=== PATIENT | female | born 1930 | race Caucasian/White ===

== ENCOUNTER 2017-03-07 21:53 | Inpatient (IN) | payer OTHER ==
[~2017-03-07] VITALS: Ht 152.4 cm; Wt 58.1 kg
[2017-03-07 22:00] VITALS: BP_SYST 129
--- NOTE | 2017-03-07 22:00 | NUR ---
Patient triaged and placed in ER hallway awaiting availble room. VSS and patient appears in no acute distress at this time. Accompanied by EMT, awaiting available bed, and MD notified of need for MSE.
[2017-03-07] MEDS ORDERED: NACL 0.9% 1,000 ML IV ONE (23:25)
--- NOTE | 2017-03-07 23:25 | NUR ---
ED MD Moyer assessing patient in hallway.
[2017-03-07] MEDS ORDERED: PANTOPRAZOLE SODIUM 40 MG/VIAL (PROTONIX) IVP ONE (23:30)
[2017-03-07] MEDS ORDERED: ONDANSETRON HCL 4 MG/2 ML VIAL IVP ONE (23:30)
[2017-03-08] VITALS (7 sets, daily range): BP systolic 110–148
--- NOTE | 2017-03-08 00:01 | NUR ---
Patient to ER bed 1 to gown for evaluation. Side rails up. Report given to Lex HOWELL.
--- NOTE | 2017-03-08 00:10 | NUR ---
Patient arrived to ED via BLS a/o x 4 with c/o failure to thrive x 2 weeks. Patients son reports the patient has been unwilling to recieve any oral intake. Patient has history of failure to thrive resulting in hospitilization 4 years ago. Patient presents lethargic. Reports lack of appetite. Son at bedside. Will continue to monitor.
[2017-03-08 00:12] LABS: BASOPHILS % (AUTO) 0.4 % (0.0-2.0)
[2017-03-08 00:18] LABS: LYMPHOCYTES # (AUTO) 0.5 K/uL (1.0-5.5); MEAN CORPUSCULAR HGB CONC 30 % (32-36); NEUTROPHILS # (AUTO) 5.6 K/uL (1.8-7.7); WHITE BLOOD COUNT (AUTO) 6.8 K/uL (4.8-10.8)
[2017-03-08 00:26] LABS: MEAN CORPUSCULAR HEMOGLOBIN 22 pg (27-31)
[2017-03-08 00:29] LABS: ANION GAP 7 (5-15); CALCIUM 9.5 mg/dL (8.4-11.0); CHLORIDE 101 mmol/L (98-107); CREATININE 1.01 mg/dL (0.55-1.30); GLUCOSE 114 mg/dL (70-99); POTASSIUM 3.1 mmol/L (3.5-5.1); SODIUM SERUM 135 mmol/L (136-145); UREA NITROGEN, BLOOD 15 mg/dL (8-21)
[2017-03-08 00:32] LABS: INR 1.3 (0.8-1.2); PROTHROMBIN TIME 13.8 SECS (9.5-12.5)
[2017-03-08 00:33] LABS: ALANINE AMINOTRANSFERASE 8 U/L (12-78); ALBUMIN 1.9 g/dL (3.4-4.8); ASPARTATE AMINOTRANSFERASE 25 U/L (10-37); TOTAL BILIRUBIN 0.8 mg/dL (0.0-1.0)
[2017-03-08 00:42] LABS: EOSINOPHILS # (AUTO) 0.2 K/uL (0.0-0.4); EOSINOPHILS % (AUTO) 2.3 % (0.0-4.0); HEMATOCRIT 26.5 % (36-48); HEMOGLOBIN 7.9 g/dL (12.0-16.0); MEAN CORPUSCULAR VOLUME 74 fL (79.0-98.0); MONOCYTES # (AUTO) 0.5 K/uL (0.0-1.0); MONOCYTES % (AUTO) 7.8 % (1.7-9.3); NEUTROPHILS % (AUTO) 81.5 % (40.0-70.0); PLATELET COUNT (AUTO) 419 K/uL (130-430); RED BLOOD CELL COUNT(AUTO) 3.59 MIL/uL (4.2-6.2); RED CELL DISTRIBUTION WIDTH 18.4 % (9.0-15.0)
--- NOTE | 2017-03-08 00:50 | NUR ---
20 gauge angiocath placed to right AC. Use of asceptic technique. Opsite placed over site. Blood return noted. Flushed with 10 cc of normal saline. No evidence of infiltration noted. Patient tolerated well.
--- NOTE | 2017-03-08 01:00 | NUR ---
Medicated per MD orders. IVF infusing with no s/s of infiltration at this time. Will continue to monitor
--- NOTE | 2017-03-08 01:15 | NUR ---
ED MD Moyer at bedside reassessing patient.
[2017-03-08] MEDS ORDERED: D5NS 1,000 ML IV ONE (01:30)
[2017-03-08] MEDS ORDERED: IRON28TA4 PO (01:37)
[2017-03-08] MEDS ORDERED: FAMO20TA8 PO (01:37)
[2017-03-08] MEDS ORDERED: DOCU-144 PO (01:37)
[2017-03-08] MEDS ORDERED: DONE5TAB3 PO (01:37)
[2017-03-08] MEDS ORDERED: ASPI-1063 PO (01:37)
[2017-03-08] MEDS ORDERED: FENO48TA4 PO (01:37)
--- NOTE | 2017-03-08 01:37 | NUR ---
Medication reconciliation completed with information provided by - list from facility. Any prior medication reconciliation on file was reviewed and corrected.
--- NOTE | 2017-03-08 01:40 | NUR ---
Patient will be admitted to care of Dr. Hicks . Admitted to Med/Surg unit. Will go to room 120A. Belongings list completed. Summary report printed. Report will be given at bedside.
--- NOTE | 2017-03-08 01:55 | NUR ---
ADMISSION NOTE Received patient from ER via [facility] under the care of Dr Hicks. Patient admitted with diagnosis of Failure to Thrive . Patient is awake, alert, oriented X 3. Patient oriented to hospital room, call light, toileting, pain management and safety-teach back done. Patient informed that her Nurse will be Janey HOWELL and that her room number is 120A. Call light within reach.Will monitor patient condition closely.
--- NOTE | 2017-03-08 02:00 | NUR ---
ROUNDS PATIENT IN BED, SON AT THE BEDSIDE, VITALS STABLE, DENIES ANY PAIN AND DISCOMFORT AT THIS TIME. ADMISSION ASSESSMENT DONE AND DOCUMENTED. SEE FLOWSHEET. PATIENT ORIENTED TO HER ROOM, PHONE AND CALL LIGHT. PLAN OF CARE DISCUSSED WITH SON AND VERBALIZED UNDERSTANDING. NEEDS ATTENDED TO. SAFETY AND FALL PRECAUTION MEASURES IN PLACED. CALL LIGHT PLACED WITHIN REACH.
--- NOTE | 2017-03-08 04:00 | NUR ---
PATIENT RESTING: Patient resting quietly. No acute distress noted. Vital signs within normal range.
--- NOTE | 2017-03-08 06:50 | NUR ---
CLOSING NOTES PATIENT AWAKE, VITALS STABLE, DENIES ANY PAIN AND DISCOMFORT AT THIS TIME. ALL NEEDS ATTENDED TO. SAFETY MEASURES MAINTAINED. CALL LIGHT PLACED WITHIN REACH.
[2017-03-08 07:14] LABS: ALANINE AMINOTRANSFERASE 9 U/L (12-78); ALBUMIN 1.6 g/dL (3.4-4.8); ANION GAP 5 (5-15); ASPARTATE AMINOTRANSFERASE 23 U/L (10-37); CALCIUM 8.9 mg/dL (8.4-11.0); CHLORIDE 104 mmol/L (98-107); CREATININE 1.18 mg/dL (0.55-1.30); GLUCOSE 109 mg/dL (70-99); POTASSIUM 3.4 mmol/L (3.5-5.1); SODIUM SERUM 138 mmol/L (136-145); TOTAL BILIRUBIN 0.8 mg/dL (0.0-1.0); UREA NITROGEN, BLOOD 14 mg/dL (8-21)
[2017-03-08 07:42] LABS: BASOPHILS % (AUTO) 0.5 % (0.0-2.0); EOSINOPHILS # (AUTO) 0.2 K/uL (0.0-0.4); EOSINOPHILS % (AUTO) 3.3 % (0.0-4.0); LYMPHOCYTES # (AUTO) 0.7 K/uL (1.0-5.5); LYMPHOCYTES % (AUTO) 12.6 % (20.5-51.5); MEAN CORPUSCULAR HEMOGLOBIN 23 pg (27-31); MEAN CORPUSCULAR HGB CONC 31 % (32-36); MEAN CORPUSCULAR VOLUME 75 fL (79.0-98.0); MONOCYTES # (AUTO) 0.6 K/uL (0.0-1.0); MONOCYTES % (AUTO) 11.9 % (1.7-9.3); NEUTROPHILS % (AUTO) 71.7 % (40.0-70.0); PLATELET COUNT (AUTO) 348 K/uL (130-430); RED BLOOD CELL COUNT(AUTO) 3.09 MIL/uL (4.2-6.2); RED CELL DISTRIBUTION WIDTH 18.4 % (9.0-15.0); WHITE BLOOD COUNT (AUTO) 5.5 K/uL (4.8-10.8)
--- NOTE | 2017-03-08 07:49 | NUR ---
OPENING NOTE: RECEIVED PATIENT FROM DANTE GIBBS. PATIENT RESTING IN BED, SEMI FOWLERS. PT IS AWAKE AND ALERT. NO ACUTE SIGNS OF RESP DISTRESS, NO SOB. SKIN WARM DRY AND COLOR PINK. IV INTACT, NO REDNESS/SWELLING/PAIN TO SITE. IVF INFUSING WELL. BED AT LOWEST POSITION, CALL LIGHT IN REACH, BED ALARM ON, SIDE RAILX3. PATIENT IS CLOSE TO NURSING STATION. CONTINUE TO MONITOR.
--- NOTE | 2017-03-08 08:04 | NUR ---
PAGING DR. JENSEN: AWAITING CALL BACK.
--- NOTE | 2017-03-08 08:05 | NUR ---
Nutrition Update Laureano Scale 16 noted. Pt admitted for Failure to thrive Diet: no diet order BMI: 24.9 kg/m2 RD to follow per nutrition care standards.
--- NOTE | 2017-03-08 09:00 | NUR ---
PAGING DR. JENSEN X2: REGARDING LAB RESULTS. AWAITING CALL BACK.
--- NOTE | 2017-03-08 10:28 | NUR ---
ROUNDING: PT RESTING IN BED. NO ACUTE SIGNS OF RESP DISTRESS, NO SOB. SKIN COLOR PINK. IV INTACT, NO REDNESS/SWELLING TO SITE. BED AT LOWEST POSITION, CALL LIGHT IN REACH, BED ALARM ON, SIDE RAILX3. SPOKE TO DR. ELISE ON THE PHONE AND DR. ELISE STATED "ILL BE THERE SHORTLY". AWAITING
[2017-03-08] MEDS ORDERED: NACL 0.9% 1,000 ML IV SCH (10:57)
[2017-03-08] MEDS ORDERED: FAMOTIDINE 20 MG TABLET PO PRN (11:00)
[2017-03-08] MEDS ORDERED: MORPHINE 2 MG/ML INJ. SYRINGE IVP PRN (11:00)
[2017-03-08] MEDS ORDERED: ACETAMINOPHEN 325 MG TABLET PO PRN (11:00)
[2017-03-08] MEDS ORDERED: ONDANSETRON HCL 4 MG/2 ML VIAL IVP PRN (11:00)
[2017-03-08 11:28] LABS: FREE T4 (FREE THYROXINE) 1.3 ng/dL (0.6-1.6)
--- NOTE | 2017-03-08 12:00 | NUR ---
ROUNDING: PT RESTING IN BED, NO ACUTE SIGNS OF RESP DISTRESS, NO SOB. SKIN WARM DRY AND PINK. DENIES PAIN AT THIS TIME. BED AT LOWEST POSITION, CALL LIGHT IN REACH, BED ALARM ON, SIDE RAILX3.
[2017-03-08 12:50] LABS: PHOSPHORUS 2.7 mg/dL (2.7-4.5)
[2017-03-08 12:51] LABS: THYROID STIMULATING HORMONE 2.18 uIu/mL (0.34-4.82)
[2017-03-08] MEDS: NORMAL SALINE 5 ML DISP.SYRIN IVF SCH ×2 (13:32→21:02)
[2017-03-08] MEDS: PIPERACILLIN/TAZO 2.25G/DEX-IS 50 ML IV SCH ×2 (13:32→18:42)
--- NOTE | 2017-03-08 14:00 | NUR ---
ROUNDING: PT RESTING IN BED. NO ACUTE SIGNS OF RESP DISTRESS, SKIN COLOR PINK. DENIES PAIN AT THIS TIME. PT AWAKE AND ALERT. BED AT LOWEST POSITION, CALL LIGHT IN REACH, BED ALARM ON, SIDE RAILX3.
--- NOTE | 2017-03-08 17:02 | NUR ---
ROUNDING: PT RESTING IN BED, NO ACUTE SIGNS OF RESP DISTRESS, NO SOB. IV INTACT, NO REDNESS/SWELLING OR PAIN TO SITE. DENIES PAIN AT THIS TIME. BED AT LOWEST POSITION, CALL LIGHT IN REACH, BED ALARM ON, SIDE RAILX3.
--- NOTE | 2017-03-08 18:11 | NUR ---
CLOSING NOTE/REFUSED FC: ENCOURAGED PATIENT TO URINATE, ASSISTED TO BEDSIDE COMMODE WITH DWAYNE. PATIENT HAD 100ML URINE OUTPUT. PT RESTING IN BED, NO ACUTE SIGNS OF RESP DISTRESS, NO SOB. SKIN WARM AND DRY. IV INTACT, NO REDNESS/SWELLING/PAIN TO SITE. BED AT LOWEST POSITION, CALL LIGHT IN REACH, BED ALARM ON, SIDE RAILX3. WILL ENDORSE PLAN OF CARE TO DANTE FLYNN.
--- NOTE | 2017-03-08 20:11 | NUR ---
Patient awake assist for position change HOB elevated , on room air 02 SAT 96 % chest movement shallow also symmetrical PATIENT is Refusing HENDRICKS CATHETER for urine will encourage BSC call ruffin with PT .
[2017-03-08] MEDS: LACTOBACILLUS RHAMNOSUS GG 1 CAP CAPSULE PO SCH (21:00)
[2017-03-08] MEDS ORDERED: SACCHAROMYCES BOULARDII 250 MG CAPSULE (FLORASTOR) PO SCH (21:00)
[2017-03-08] MEDS: DONEPEZIL HCL 5 MG TABLET (ARICEPT) PO SCH (21:00)
[2017-03-08] MEDS: DOCUSATE SODIUM 100 MG CAPSULE PO SCH (21:01)
--- NOTE | 2017-03-09 | NUR ---
Hourly Rounding patient resting is verbally responsive HOB elevated chest movement symmetrical skin dry warm assist for position change tolerated .
[2017-03-09] MEDS: PIPERACILLIN/TAZO 2.25G/DEX-IS 50 ML IV SCH ×4 (00:32→18:37)
[2017-03-09 03:31] VITALS: BP_SYST 133
[2017-03-09 04:02] LABS: BILIRUBIN,URINE 1+ (NEGATIVE); BLOOD, URINE 2+ (NEGATIVE); CLARITY/URINE CLEAR (CLEAR); COLOR,URINE YELLOW (YELLOW); GLUCOSE,URINE NEGATIVE (NEGATIVE); KETONES,URINE TRACE (NEGATIVE); LEUKOCYTE ESTERASE ,URINE TRACE (NEGATIVE); NITRITE, URINE NEGATIVE (NEGATIVE); PH,URINE 5.5 (5.0-8.0); PROTEIN URINE 1+ (NEGATIVE); UROBILINOGEN,URINE >=8 (0.2-1.0)
[2017-03-09 04:03] LABS: BACTERIA,URINE MODERATE /HPF (None Seen)
--- NOTE | 2017-03-09 04:03 | NUR ---
URINE HAS BEEN COLLECTED and sent to lab / .
[2017-03-09 04:04] LABS: MUCUS,URINE 1+ /LPF (None Seen)
--- NOTE | 2017-03-09 04:08 | NUR ---
assist PATIENT out of bed to bedside commode PT did urinate , safety measures implemented .
--- NOTE | 2017-03-09 04:54 | NUR ---
ZOSYN 2.25 GM IVPB administer as ordered no s/sx of allergic reaction no hives no itching noted / .
[2017-03-09 05:09] LABS: T4 (THYROXINE) 8.1 ug/dL (4.5-12.0)
[2017-03-09] MEDS: NORMAL SALINE 5 ML DISP.SYRIN IVF SCH ×3 (06:36→22:16)
[2017-03-09 07:53] LABS: ANION GAP 7 (5-15); CALCIUM 8.9 mg/dL (8.4-11.0); CHLORIDE 103 mmol/L (98-107); CHOLESTEROL 103 mg/dL (<200); CREATININE 1.31 mg/dL (0.55-1.30); GLUCOSE 128 mg/dL (70-99); HDL CHOLESTEROL 27 mg/dL (>55); LDL CHOLESTEROL 79 mg/dL (<100); SODIUM SERUM 137 mmol/L (136-145); TRIGLYCERIDES 72 mg/dL (30-150); UREA NITROGEN, BLOOD 13 mg/dL (8-21)
[2017-03-09 08:15] LABS: BASOPHILS % (AUTO) 0.3 % (0.0-2.0); EOSINOPHILS # (AUTO) 0.2 K/uL (0.0-0.4); EOSINOPHILS % (AUTO) 2.9 % (0.0-4.0); HEMATOCRIT 23.3 % (36-48); LYMPHOCYTES # (AUTO) 0.7 K/uL (1.0-5.5); LYMPHOCYTES % (AUTO) 9.2 % (20.5-51.5); MEAN CORPUSCULAR HEMOGLOBIN 23 pg (27-31); MEAN CORPUSCULAR HGB CONC 30 % (32-36); MEAN CORPUSCULAR VOLUME 75 fL (79.0-98.0); MONOCYTES # (AUTO) 0.7 K/uL (0.0-1.0); MONOCYTES % (AUTO) 8.8 % (1.7-9.3); NEUTROPHILS # (AUTO) 6.1 K/uL (1.8-7.7); NEUTROPHILS % (AUTO) 78.8 % (40.0-70.0); PLATELET COUNT (AUTO) 349 K/uL (130-430); RED BLOOD CELL COUNT(AUTO) 3.13 MIL/uL (4.2-6.2); RED CELL DISTRIBUTION WIDTH 18.8 % (9.0-15.0); WHITE BLOOD COUNT (AUTO) 7.7 K/uL (4.8-10.8)
[2017-03-09 08:34] VITALS: BP_SYST 114
[2017-03-09 09:12] LABS: HEMOGLOBIN A1C 5.2 % (4.8-5.6)
[2017-03-09] MEDS: LACTOBACILLUS RHAMNOSUS GG 1 CAP CAPSULE PO SCH ×2 (09:26→22:15)
[2017-03-09] MEDS: FENOFIBRATE NANOCRYSTALLIZED 48 MG TABLET (TRICOR) PO SCH (09:27)
[2017-03-09] MEDS: DOCUSATE SODIUM 100 MG CAPSULE PO SCH ×2 (09:27→22:15)
[2017-03-09] MEDS: ASPIRIN 81 MG TABLET(ECOTRIN) PO SCH (09:27)
--- NOTE | 2017-03-09 10:38 | NUR ---
DC PLANNING: ALEX(SON) OF THE PT TEL# [phone], REQUESTING A LIST OF SNFS WHERE Brian KIM GOES TO. GAVE THE LIST AND HE WILL JUST LET THE CM/DCP KNOW WHERE. Addendum: 03/09/17 at 1441 by Danielle Peters RN FAXED TO [facility]#[phone]; FAX# [phone]. KYE WILL CHECK ELIGIBILITY AND WILL CALL BACK.
--- NOTE | 2017-03-09 11:51 | NUR ---
SPOKE WITH PATIENT'S SON REGARDING PLAN OF CARE. PER SON PATIENT IS DNR, DOES NOT WANT FEEDING TUBE, WILL TRY MEDICATIONS TO STIMULATE APPETITE IF APPROPRIATE.
[2017-03-09 12:00] VITALS: BP_SYST 101
--- NOTE | 2017-03-09 12:55 | NUR ---
PT SON AT BEDSIDE ASSISTING PATIENT WITH EATING. PATIENT IS EATING SLOWLY. C/O BLADDER SPASMS.
--- NOTE | 2017-03-09 14:41 | NUR ---
Dietitian Recommendations * Recommend regular diet, Boost Plus TID * Consider appetite stimulant JEANNINE, RD Please refer to Nutrition Assessment for details. Addendum: 03/09/17 at [address] NOTE: (oral supplement provides an additional 1080 kcal/day and 42 gm protein/day)
[2017-03-09 16:06] VITALS: BP_SYST 105
--- NOTE | 2017-03-09 16:33 | NUR ---
CARDIOLOGY CONSULT CALLED TO DR LONG, DR DUQUE NETWORK SERVICES PROJECT MANAGER, RE: FAILURE TO THRIVE. SPOKE TO BENSON
[2017-03-09 21:07] VITALS: BP_SYST 108
--- NOTE | 2017-03-09 21:15 | NUR ---
DR KYLE POSADA did call & is aware of the ordered consult .
--- NOTE | 2017-03-09 21:54 | NUR ---
GI Consultation Paged Reason for consultation: Abd Pain, Poor Appetite, 10 lbs wt loss, Anemia Was consult called: Yes Person who was notified: Demetria Consulting Physician: Dr Ashby Supervisor [employer] Supervisor [employer] Specialty: Gastroenterology Ordered By: Dr Howell
[2017-03-09] MEDS: DONEPEZIL HCL 5 MG TABLET (ARICEPT) PO SCH (22:15)
[2017-03-09 23:19] VITALS: BP_SYST 135
[2017-03-10] MEDS: PIPERACILLIN/TAZO 2.25G/DEX-IS 50 ML IV SCH ×4 (01:26→18:18)
--- NOTE | 2017-03-10 01:41 | NUR ---
Hourly Rounding patient resting call ruffin with PT bed to low position .
--- NOTE | 2017-03-10 01:43 | NUR ---
ZOSYN 2.25 GM IVPB ADMINISTER as ordered no s/sx of allergic reaction skin dry warm .
--- NOTE | 2017-03-10 03:36 | NUR ---
Hourly Rounding patient resting call ruffin with PT no complaints made .
[2017-03-10 03:43] VITALS: BP_SYST 124
--- NOTE | 2017-03-10 05:49 | NUR ---
Patient awake assist with use of bed arrington , kept clean and dry as needed position change tolerated .
[2017-03-10] MEDS: NORMAL SALINE 5 ML DISP.SYRIN IVF SCH ×3 (06:11→22:29)
[2017-03-10 07:50] LABS: BASOPHILS % (AUTO) 0.3 % (0.0-2.0); EOSINOPHILS # (AUTO) 0.2 K/uL (0.0-0.4); EOSINOPHILS % (AUTO) 3.1 % (0.0-4.0); HEMATOCRIT 23.8 % (36-48); HEMOGLOBIN 7.4 g/dL (12.0-16.0); LYMPHOCYTES # (AUTO) 0.8 K/uL (1.0-5.5); LYMPHOCYTES % (AUTO) 10.7 % (20.5-51.5); MEAN CORPUSCULAR HEMOGLOBIN 23 pg (27-31); MEAN CORPUSCULAR HGB CONC 31 % (32-36); MEAN CORPUSCULAR VOLUME 75 fL (79.0-98.0); MONOCYTES # (AUTO) 0.7 K/uL (0.0-1.0); MONOCYTES % (AUTO) 9.8 % (1.7-9.3); NEUTROPHILS # (AUTO) 5.4 K/uL (1.8-7.7); NEUTROPHILS % (AUTO) 76.1 % (40.0-70.0); PLATELET COUNT (AUTO) 359 K/uL (130-430); RED BLOOD CELL COUNT(AUTO) 3.18 MIL/uL (4.2-6.2); RED CELL DISTRIBUTION WIDTH 18.5 % (9.0-15.0); WHITE BLOOD COUNT (AUTO) 7.2 K/uL (4.8-10.8)
[2017-03-10 08:00] VITALS: BP_SYST 133
[2017-03-10 08:14] LABS: ANION GAP 9 (5-15); CALCIUM 8.9 mg/dL (8.4-11.0); CHLORIDE 103 mmol/L (98-107); CREATININE 1.33 mg/dL (0.55-1.30); GLUCOSE 128 mg/dL (70-99); PHOSPHORUS 2.2 mg/dL (2.7-4.5); POTASSIUM 3.5 mmol/L (3.5-5.1); SODIUM SERUM 137 mmol/L (136-145); UREA NITROGEN, BLOOD 14 mg/dL (8-21)
--- NOTE | 2017-03-10 08:16 | NUR ---
OPENING NOTE RECEIVED REPORT FROM NIGHT RN. PT RESTING IN BED WITH S/S OF DISTRESS OR SOB. IV INTACT AND PATENT KEPT KVO. VITAL SIGNS STABLE. CALL MARTINS WITHIN REACH. BED IN LOWEST POSITION. WILL CONTINUE TO MONITOR CLOSELY
[2017-03-10] MEDS: LACTOBACILLUS RHAMNOSUS GG 1 CAP CAPSULE PO SCH ×2 (08:51→22:28)
[2017-03-10] MEDS: DOCUSATE SODIUM 100 MG CAPSULE PO SCH ×2 (08:51→22:28)
[2017-03-10] MEDS: FENOFIBRATE NANOCRYSTALLIZED 48 MG TABLET (TRICOR) PO SCH (08:52)
[2017-03-10] MEDS: ASPIRIN 81 MG TABLET(ECOTRIN) PO SCH (08:52)
--- NOTE | 2017-03-10 10:00 | NUR ---
ROUNDS PT RESTING IN BED WITH NO S/S OF DISTRESS OR SOB. FAMILY MEMBER AT BEDSIDE. DIET CHANGED TO CLEAR LIQUID DIET. BED IN LOWEST POSITION. CALL MARTINS WITHIN REACH. WILL CONTINUE TO MONITOR
--- NOTE | 2017-03-10 12:00 | NUR ---
ROUNDS PT RESTING IN BED WITH NO S/S OF DISTRESS OR SOB. FAMILY MEMBER AT BEDSIDE. KCL AND ZOSYN ORDERED. 12 LEAD EKG ORDERED. PT TO HAVE CT SCAN. BED IN LOWEST POSITION, CALL MARTINS WITHIN REACH. WILL CONTINUE TO MONITOR.
[2017-03-10 12:45] VITALS: BP_SYST 132
--- NOTE | 2017-03-10 14:00 | NUR ---
ROUNDS PT RESTING IN BED WITH NO S/S OF DISTRESS OR SOB AND NO CURRENT COMPLAINTS. BED IN LOWEST POSITION. CALL MARTINS WITHIN REACH. WILL CONTINUE TO MONITOR.
[2017-03-10] MEDS: POTASSIUM CHLORIDE 10 MEQ in NACL 0.9% 1,000 ML IV SCH (14:45)
--- NOTE | 2017-03-10 16:00 | NUR ---
ROUNDS PT GOING FOR CT SCAN. WILL CONTINUE TO MONITOR.
[2017-03-10 16:20] VITALS: BP_SYST 136
--- NOTE | 2017-03-10 18:52 | NUR ---
CLOSING NOTE PT RESTING IN BED WITH NO S/S OF DISTRESS OR SOB. FAMILY MEMBERS AT BEDSIDE. PT URINATED DARK PATRICIA URINE USING BEDPAN. IV INTACT AND PATENT RUNNING KCL 10 IN NS AND ZOSYN GIVEN. VITAL SIGNS STABLE. BED REMAINS IN LOWEST POSITION. ALL NEEDS MET DURING SHIFT. WILL GIVE REPORT TO COLLAR BAND CREASER RN.
[2017-03-10 20:23] VITALS: BP_SYST 137
--- NOTE | 2017-03-10 21:35 | NUR ---
Patient awake assist for position change , skin dry warm comfort measures implemented & helpful .
[2017-03-10] MEDS: DONEPEZIL HCL 5 MG TABLET (ARICEPT) PO SCH (22:29)
[2017-03-10 23:39] VITALS: BP_SYST 134
[2017-03-11] VITALS (9 sets, daily range): BP systolic 108–129
--- NOTE | 2017-03-11 | NUR ---
NPO STATUS PATIENT IS NPO THIS HOUR .
[2017-03-11] MEDS: PIPERACILLIN/TAZO 2.25G/DEX-IS 50 ML IV SCH ×4 (00:09→18:47)
--- NOTE | 2017-03-11 04:11 | NUR ---
patient is NPO for AM procedure EGD .
--- NOTE | 2017-03-11 04:14 | NUR ---
Hourly Rounding bed to low position call ruffin with PT fall measures implemented frequent monitor .
[2017-03-11] MEDS: POTASSIUM CHLORIDE 10 MEQ in NACL 0.9% 1,000 ML IV SCH ×2 (06:24→13:28)
[2017-03-11] MEDS: NORMAL SALINE 5 ML DISP.SYRIN IVF SCH ×3 (06:25→21:26)
[2017-03-11] MEDS ORDERED: MEPERIDINE HCL/PF 100 MG/ML AMP ONE (06:44)
[2017-03-11] MEDS ORDERED: MIDAZOLAM HCL 5 MG/5 ML VIAL ONE (06:44)
--- NOTE | 2017-03-11 07:30 | NUR ---
Picked pt up from room 130A and brought to GI lab via bed. Son with pt.
[2017-03-11 07:41] LABS: BASOPHILS % (AUTO) 0.6 % (0.0-2.0); EOSINOPHILS # (AUTO) 0.4 K/uL (0.0-0.4); EOSINOPHILS % (AUTO) 5.5 % (0.0-4.0); HEMATOCRIT 23.5 % (36-48); HEMOGLOBIN 7.3 g/dL (12.0-16.0); LYMPHOCYTES # (AUTO) 0.9 K/uL (1.0-5.5); LYMPHOCYTES % (AUTO) 12.4 % (20.5-51.5); MEAN CORPUSCULAR HEMOGLOBIN 23 pg (27-31); MEAN CORPUSCULAR HGB CONC 31 % (32-36); MEAN CORPUSCULAR VOLUME 75 fL (79.0-98.0); MONOCYTES # (AUTO) 0.7 K/uL (0.0-1.0); MONOCYTES % (AUTO) 10.2 % (1.7-9.3); NEUTROPHILS # (AUTO) 4.9 K/uL (1.8-7.7); NEUTROPHILS % (AUTO) 71.3 % (40.0-70.0); PLATELET COUNT (AUTO) 340 K/uL (130-430); RED BLOOD CELL COUNT(AUTO) 3.15 MIL/uL (4.2-6.2); RED CELL DISTRIBUTION WIDTH 18.5 % (9.0-15.0)
[2017-03-11 07:48] LABS: ANION GAP 7 (5-15); CALCIUM 8.9 mg/dL (8.4-11.0); CHLORIDE 103 mmol/L (98-107); CREATININE 1.22 mg/dL (0.55-1.30); GLUCOSE 108 mg/dL (70-99); PHOSPHORUS 2.3 mg/dL (2.7-4.5); POTASSIUM 3.5 mmol/L (3.5-5.1); SODIUM SERUM 136 mmol/L (136-145); UREA NITROGEN, BLOOD 12 mg/dL (8-21)
--- NOTE | 2017-03-11 07:55 | NUR ---
GI RECOVERY NOTE RECEIVED PT TO RR FROM GI LAB. SATS 95%, 126/59 HR 69 RR 18. SKIN WARM PINK AND DRY. PT OPENS EYES TO NAME CALLING AND SMILES. NO NAUSEA OR VOMITING. HOB UP. SON AT BEDSIDE. WILL CONTINUE TO MONITOR. Addendum: 03/11/17 at 0859 by Cherelle Miller RN Pt given Versed 1 mg IVP and Demerol 12.5 mg IVP as sedation for procedure.
[2017-03-11 08:00] LABS: WHITE BLOOD COUNT (AUTO) 6.9 K/uL (4.8-10.8)
--- NOTE | 2017-03-11 08:00 | NUR ---
RECEIVED PT TO RR FROM GI LAB. SATS 95%, 119/59 HR 69 RR 16. SKIN WARM PINK AND DRY. PT OPENS EYES TO NAME CALLING . NO NAUSEA OR VOMITING. HOB UP. SON AT BEDSIDE. WILL CONTINUE TO MONITOR.
--- NOTE | 2017-03-11 08:05 | NUR ---
REMAINS EASILY AROUSABLE. SKIN WARM AND DRY, PINK. PT IS LYING ON LEFT SIDE IN BED WITH HOB UP. BP 125/57, HR 67 RR 18 SATS 94% OFF 02. WILL CONTINUE TO MONITOR. SON AT BEDSIDE. NO BLEEDING N/V NOTED.
--- NOTE | 2017-03-11 08:10 | NUR ---
Remains easily arousable and answers questions. Skin warm, dry and pink. HOB up. Sats 95%, 122/61, HR 69 and RR 16. NO bleeding nausea or vomiting noted. Son at bedside. Will continue to montior.
--- NOTE | 2017-03-11 08:20 | NUR ---
Pt easily arousable and answers questions. Skin pink, warm and dry. No active bleeding, nausea or vomiting noted. BP 119/58/HR 66/RR 16 and sats 95 % without 02. HOB up. Pts son at bedside. Will continue to monitor.
[2017-03-11 08:28] LABS: TOTAL IRON BIND. CAPACITY 158 ug/dL (250-450)
--- NOTE | 2017-03-11 08:30 | NUR ---
Pt remains easily arousable. VSS. BP 106/61,RR 16,HR 73 and sats 95%. Skin pink and warm. no active bleeding nausea or vomiting. HOB up. Son at bedside. WIll continue to monitor.
[2017-03-11 08:33] LABS: INR 1.3 (0.8-1.2); PROTHROMBIN TIME 13.7 SECS (9.5-12.5)
--- NOTE | 2017-03-11 08:40 | NUR ---
Pt transferred by bed to room 130A. Son at bedside. Report given to Beulah at bedside.
--- NOTE | 2017-03-11 09:00 | NUR ---
rounds pt back from gi lab accompanied by pt's son. ivl on the l hand intact. occupational therapist aide infiltrationoted. pt is drowsy but arousable to stimuli. no sob noted. no acute distress. bed in low position and call light within reached.
--- NOTE | 2017-03-11 11:25 | NUR ---
S.T. SWALLOW EVAL COMPLETED. PT PRESENTS W/ GENERALLY FUNCTIONAL OROPHARYNGEAL SWALLOW W/ NO S/S OF ASPIRATION. REC: [facility] SOFT CHOPPED DIET. NURSES STAR AND TANYA NOTIFIED. G8996 CI G8997 CI G8998 CI NOMS LEVEL 6
[2017-03-11] MEDS: FENOFIBRATE NANOCRYSTALLIZED 48 MG TABLET (TRICOR) PO SCH (13:27)
[2017-03-11] MEDS: LACTOBACILLUS RHAMNOSUS GG 1 CAP CAPSULE PO SCH ×2 (13:27→21:23)
[2017-03-11] MEDS: DOCUSATE SODIUM 100 MG CAPSULE PO SCH ×2 (13:27→21:23)
[2017-03-11] MEDS: ASPIRIN 81 MG TABLET(ECOTRIN) PO SCH (13:28)
--- NOTE | 2017-03-11 13:31 | NUR ---
rounds pt being fed by the son at [facility] and [facility]. iv abx not available at this time..
--- NOTE | 2017-03-11 19:00 | NUR ---
closing notes pt is asleep , resting quietly. no acute distress noted. bed in low position and side rails up and locked.
--- NOTE | 2017-03-11 20:00 | NUR ---
INITIAL NOTES: PT is ao x4, no distress of breathing and sob.No appetite to eat,and drink.IV intact.able to walk with assident to the bathroom,call light within reach ,continue monitor.
[2017-03-11] MEDS: DONEPEZIL HCL 5 MG TABLET (ARICEPT) PO SCH (21:23)
--- NOTE | 2017-03-11 22:20 | NUR ---
RN NOTES: PT is sleep,cooperate with nurse. medication is given .continue monitor.
[2017-03-12] MEDS: PIPERACILLIN/TAZO 2.25G/DEX-IS 50 ML IV SCH ×2 (00:19→06:26)
--- NOTE | 2017-03-12 00:30 | NUR ---
AMBULATORY TO THE BATH ROOM WITH HOTEL SERVICE SUPERVISOR.
[2017-03-12 01:04] VITALS: BP_SYST 124
--- NOTE | 2017-03-12 02:30 | NUR ---
RN NOTES: pt is sleep well with out distress. no c/o of pain.call light within reach continue monitor.
[2017-03-12 04:00] VITALS: BP_SYST 111
--- NOTE | 2017-03-12 04:30 | NUR ---
RN notes: Reposition pt to comfortable right side. pillow under the arm.continue monitor .call light within reach.
[2017-03-12] MEDS: POTASSIUM CHLORIDE 10 MEQ in NACL 0.9% 1,000 ML IV SCH ×2 (06:27→15:08)
[2017-03-12] MEDS: NORMAL SALINE 5 ML DISP.SYRIN IVF SCH ×3 (06:28→21:28)
--- NOTE | 2017-03-12 07:00 | NUR ---
Closing notes: Pt resting and sleep without distress,IV fluids infusion well.pt stable.needs met.report to next shift nurse.
[2017-03-12 07:09] LABS: BASOPHILS % (AUTO) 0.6 % (0.0-2.0); EOSINOPHILS # (AUTO) 0.2 K/uL (0.0-0.4); EOSINOPHILS % (AUTO) 2.7 % (0.0-4.0); HEMATOCRIT 24.1 % (36-48); HEMOGLOBIN 7.6 g/dL (12.0-16.0); LYMPHOCYTES # (AUTO) 0.7 K/uL (1.0-5.5); LYMPHOCYTES % (AUTO) 9.8 % (20.5-51.5); MEAN CORPUSCULAR HEMOGLOBIN 24 pg (27-31); MEAN CORPUSCULAR HGB CONC 31 % (32-36); MEAN CORPUSCULAR VOLUME 75 fL (79.0-98.0); MONOCYTES # (AUTO) 0.7 K/uL (0.0-1.0); MONOCYTES % (AUTO) 9.9 % (1.7-9.3); NEUTROPHILS # (AUTO) 5.3 K/uL (1.8-7.7); PLATELET COUNT (AUTO) 389 K/uL (130-430); RED BLOOD CELL COUNT(AUTO) 3.22 MIL/uL (4.2-6.2); RED CELL DISTRIBUTION WIDTH 18.4 % (9.0-15.0); WHITE BLOOD COUNT (AUTO) 6.9 K/uL (4.8-10.8)
[2017-03-12 08:00] VITALS: BP_SYST 125
--- NOTE | 2017-03-12 08:00 | NUR ---
initial notes rec patient asleep but arousable to stimuli. ivf infusing well on the l forearm. no infiltration noted. resp easy unlabored. hob slightly elevated. bed in low position and side rails up and locked. call light within reached and knows when to call for assists.
[2017-03-12 08:19] LABS: CALCIUM 8.6 mg/dL (8.4-11.0); CHLORIDE 102 mmol/L (98-107); CREATININE 0.76 mg/dL (0.55-1.30); GLUCOSE 124 mg/dL (70-99); PHOSPHORUS 2.4 mg/dL (2.7-4.5); POTASSIUM 3.7 mmol/L (3.5-5.1); SODIUM SERUM 135 mmol/L (136-145); UREA NITROGEN, BLOOD 16 mg/dL (8-21)
[2017-03-12 08:27] LABS: ANION GAP 8 (5-15)
[2017-03-12 09:05] LABS: TOTAL IRON BIND. CAPACITY 131 ug/dL (250-450)
[2017-03-12] MEDS ORDERED: MORPHINE 2 MG/ML INJ. SYRINGE IVP PRN (09:45)
[2017-03-12] MEDS ORDERED: ZOLPIDEM TARTRATE 5 MG TABLET PO PRN (09:45)
[2017-03-12] MEDS ORDERED: ACETAMINOPHEN 325 MG TABLET PO PRN (09:45)
[2017-03-12] MEDS ORDERED: DOCUSATE SODIUM 100 MG CAPSULE PO PRN (09:45)
[2017-03-12] MEDS ORDERED: POTASSIUM CHLORIDE 10 MEQ TAB.PRT.SR PO PRN (09:45)
[2017-03-12] MEDS ORDERED: ONDANSETRON HCL 4 MG/2 ML VIAL IVP PRN (09:45)
[2017-03-12] MEDS ORDERED: MAGNESIUM SULFATE 50 ML IV PRN (09:45)
[2017-03-12] MEDS ORDERED: LORazepam 2 MG/ML VIAL IVP PRN (09:45)
[2017-03-12] MEDS ORDERED: IOHEXOL 100 ML IV ONE (10:30)
--- NOTE | 2017-03-12 10:50 | NUR ---
rounds pt back from ct scan via wheelchair. no acute distress noted. pt jimenez back to sleep.
--- NOTE | 2017-03-12 11:05 | NUR ---
DISCHARGE PLANNING Spoke with Carissa in admitting at [facility] [phone] who will have Venus in admitting return DCP call. Still pending discharge order. ULICES made aware and will follow up with on estimated discharge date. Addendum: 03/12/17 at 1159 by Emely LUNA Spoke with Venus at [facility] who will follow up with faxed referral and return call to DCP of facility decision. Venus was made aware [facility] will keep facility informed of estimated discharge. Addendum: 03/12/17 at 1202 by Emely Rodriguez DP Spoke with Venus at [facility] facility accepted patient and will give bed assignment upon discharge order.
[2017-03-12 12:20] VITALS: BP_SYST 123
--- NOTE | 2017-03-12 13:00 | NUR ---
rounds up and walking with p t and [facility] with a walker. family in the room with patient.
[2017-03-12] MEDS: cefTRIAXone 1 GM in D5W 50 ML IV SCH (14:10)
--- NOTE | 2017-03-12 14:30 | NUR ---
PHYSICAL THERAPY CO-SIGN The Physical Therapy Progress Notes documented by [employer] have been reviewed. Reviewed/Co-Signed by: Radha Jones,PT Documentation Done by: Ron Jenkins PTA I concur with the documentation of this FAMILY PROGRAM SPECIALIST. Plan: continue PT as per plan of care if she remains in this hospital. Addendum: 03/12/17 at 1549 by Radha Jones PT Amended: Links added.
--- NOTE | 2017-03-12 14:32 | NUR ---
CONSULT ONCOLOGY [address] ENRIQUE [phone] S/W [facility] OFFICE @[phone]
--- NOTE | 2017-03-12 15:20 | NUR ---
Nutrition F/U Admitting Diagnosis FTT Reviewed Pertinent Medical/Surgical Hx OPHTHALMIC ASSISTANT Medical Record Patient Medical History Comment: Dementia, anemia of chronic Dz, muslce weakness, unsteady gait, GERD, HLD per MD notes Subjective Information Pt seen resting in bed w/ lunch tray atop bedside table, seemingly untouched. OPHTHALMIC ASSISTANT assisted pt w/ feeding as pt seemed to have poor appetite. OPHTHALMIC ASSISTANT encouraged pt to try to eat a little bit of everything. Pt seemingly hesitant, and stated she is not hungry. Pt was evaluated by ST for swallow eval on 03/11/17; ST rec included mechanical soft, chopped diet. Pt pending oncologist/nail maker consult for 6 cm renal mass per MD orders. Pt is likely not meeting optimal nutritional needs. Pt is not appropriate for nutrition education. Current Diet Order/Nutrition Support Mechanical soft Patient/Significant Other Able To Verbalize Education Provided Not Indicated Pertinent Medications culturelle Pertinent Labs Na 135 L, K 3.7 WNL (improved), BG 124 H, CRE 0.76 WNL (improved), BNP 240 H (03/08/17), Amylase 121 H (03/08/17), H/H 7.6 L/24.1 L Height (Feet) 5 feet Height (Inches) 0.00 inches Weight (Pounds) 128 pounds (admission) BEDSCALE WT: 144 lb (03/12/17) -- likely inaccurate as bedscale may not have been calibrated properly Weight (Calculated Kilograms) 58.799192 kilograms Patient Weight 58.06 kg Body Mass Index 25.00 kg/m2 Usual Weight 138 lbs %UBW 101 %IBW 129 Hood/Adjusted Body Weight IBW: 100 lb, 45 kg Recent Weight Change Yes - 16 lb wt loss within past 4 months per son Weight Status Appropriate Gastrointestinal Symptoms None Food Allergies No Usual Diet At Home Regular Skin Integrity Comment: Laureano scale: 17; no skin issues noted Current % PO Poor/fair (25-75%) Estimated Energy Expenditure (kcals/day) 1382-0882 kcal/day (25-30 kcal/kg CBW for maintenance) Estimated Protein Required (g/day) 58 gm/day (1 gm/kg CBW for maintenance) Estimated Fluid Required (l/day) 1.5 L/day (25 ml/kg CBW for maintenance) Problem/Etiology/Signs/Symptoms Inadequate nutritional intakes related to lack of appetite as evidenced by poor PO intake records, unintentional wt loss, and Dx of FTT. Expected Outcomes/Goals - Monitor appetite and PO intakes w/ goal of pt meeting at least 75% of estimated nutritional needs, labs trending WNL, normal GI function, and skin integrity/wt maintenance Dietitian Recommendations * Recommend mechanical soft, chopped diet, Boost Plus TID (oral supplement provides an additional 1080 kcal/day and 42 gm protein/day) * Consider appetite stimulant Follow Up High Risk: F/U in 2-3 days Addendum: 03/12/17 at [address] CORRECTION: Laureano Moss; no skin issues noted
[2017-03-12 15:27] VITALS: BP_SYST 125
--- NOTE | 2017-03-12 15:27 | NUR ---
Dietitian Recommendations * Recommend mechanical soft, chopped diet, Boost Plus TID (oral supplement provides an additional 1080 kcal/day and 42 gm protein/day) * Consider appetite stimulant LP, RD Please refer to Nutrition F/U for details.
--- NOTE | 2017-03-12 16:00 | NUR ---
rounds dressing on the r hip intact . toes moving freely and warm to touch. sleeps at intervals . Addendum: 03/12/17 at 2003 by Liza Gutiérrez RN intended for another patient
[2017-03-12] MEDS: LACTOBACILLUS RHAMNOSUS GG 1 CAP CAPSULE PO SCH ×2 (17:07→21:26)
[2017-03-12] MEDS: FENOFIBRATE NANOCRYSTALLIZED 48 MG TABLET (TRICOR) PO SCH (17:07)
[2017-03-12] MEDS: ASPIRIN 81 MG TABLET(ECOTRIN) PO SCH (17:07)
--- NOTE | 2017-03-12 18:00 | NUR ---
rounds ib infiltrated on the l forearm and was restarted by jamaal on the r forearm. no infiltration noted. Addendum: 03/12/17 at 2005 by Liza Gutiérrez RN intended for another patient
--- NOTE | 2017-03-12 18:35 | NUR ---
closing notes son at bedside and wating for dr roth for pt's consult. no acute distress. pt being assisted by son to eat. stable, needs attended. call light within reached.
[2017-03-12 19:50] VITALS: BP_SYST 125
--- NOTE | 2017-03-12 20:05 | NUR ---
INITIAL NOTES: PT is ao x4, no distress of breathing and sob.patient asleep but arousable to stimuli. ivf infusing well on the left forearm. no infiltration noted. bed in low position and side rails up and locked. call light within reached and knows when to call for assists.
[2017-03-12] MEDS: DONEPEZIL HCL 5 MG TABLET (ARICEPT) PO SCH (21:26)
[2017-03-12] MEDS: HEPARIN SODIUM,PORCINE 5000 UNITS/ML VIAL SUBCUT SCH (21:27)
--- NOTE | 2017-03-12 21:33 | NUR ---
MEDS: pt is taken medication by herself.call light within reach. continue monitor .
--- NOTE | 2017-03-12 23:30 | NUR ---
RN NOTES: PT request to bathroom with the bed arrington.she is tired to walk to the bathroom.needs are mets.call light within reach.
--- NOTE | 2017-03-13 01:32 | NUR ---
RN NOTES; PT restless,reposition pt .perform comfortable care.call light within reach,continue monitor.
[2017-03-13] MEDS: MORPHINE 2 MG/ML INJ. SYRINGE IVP PRN ×2 (01:37→18:53)
[2017-03-13 01:58] VITALS: BP_SYST 127
[2017-03-13] MEDS: POTASSIUM CHLORIDE 10 MEQ in NACL 0.9% 1,000 ML IV SCH ×3 (02:28→21:20)
--- NOTE | 2017-03-13 02:34 | NUR ---
RN NOTES: IVF is changing bag.PT is resting well ,no s/sx of distress ,no sob.call light within reach.continue monitor.
--- NOTE | 2017-03-13 05:49 | NUR ---
RN NOTES: PT is awake and alert ,IV are patent,scd in both leg.3 rail up,call light within reach.continue monitor.
[2017-03-13 05:58] VITALS: BP_SYST 135
[2017-03-13] MEDS: NORMAL SALINE 5 ML DISP.SYRIN IVF SCH ×3 (06:00→21:18)
[2017-03-13 06:12] LABS: FOLATE (FOLIC ACID) 11.5 ng/mL (>3.0)
--- NOTE | 2017-03-13 06:44 | NUR ---
Closing notes: PT asleep ,3 rails up,bed in lowest position .She feel cold,extra warm blanket is provide. all need are met ,call light within reach.report to next shift nurse.
[2017-03-13 07:03] LABS: ANION GAP 9 (5-15); CALCIUM 8.5 mg/dL (8.4-11.0); CHLORIDE 104 mmol/L (98-107); CREATININE 1.25 mg/dL (0.55-1.30); GLUCOSE 125 mg/dL (70-99); POTASSIUM 3.6 mmol/L (3.5-5.1); SODIUM SERUM 136 mmol/L (136-145); UREA NITROGEN, BLOOD 14 mg/dL (8-21)
[2017-03-13 07:12] LABS: BASOPHILS % (AUTO) 0.5 % (0.0-2.0); EOSINOPHILS # (AUTO) 0.3 K/uL (0.0-0.4); EOSINOPHILS % (AUTO) 4.1 % (0.0-4.0); HEMATOCRIT 23.4 % (36-48); LYMPHOCYTES # (AUTO) 0.9 K/uL (1.0-5.5); LYMPHOCYTES % (AUTO) 12.6 % (20.5-51.5); MEAN CORPUSCULAR HEMOGLOBIN 23 pg (27-31); MEAN CORPUSCULAR HGB CONC 31 % (32-36); MEAN CORPUSCULAR VOLUME 75 fL (79.0-98.0); MONOCYTES # (AUTO) 0.7 K/uL (0.0-1.0); MONOCYTES % (AUTO) 10.8 % (1.7-9.3); PLATELET COUNT (AUTO) 372 K/uL (130-430); RED BLOOD CELL COUNT(AUTO) 3.14 MIL/uL (4.2-6.2); RED CELL DISTRIBUTION WIDTH 18.4 % (9.0-15.0); WHITE BLOOD COUNT (AUTO) 6.9 K/uL (4.8-10.8)
[2017-03-13 07:14] LABS: HEMOGLOBIN 7.2 g/dL (12.0-16.0)
[2017-03-13 08:08] VITALS: BP_SYST 125
--- NOTE | 2017-03-13 08:18 | NUR ---
INITIAL NOTE PT LAYING IN BED, SLEEPING, EVEN RISE AND FALL OF CHEST NOTED, PT EASY TO AROUSE, NO S/S OF ACUTE DISTRESS OR PAIN, VSS, IV TO LFA INFUSING NO S/S OF INFILTRATION NOTED, SAFETY MEASURES IN PLACE, CALL LIGHT WITHIN REACH, WILL MONITOR PT CLOSELY
[2017-03-13] MEDS: PANTOPRAZOLE SODIUM 40 MG TAB PO SCH (09:31)
[2017-03-13] MEDS: LACTOBACILLUS RHAMNOSUS GG 1 CAP CAPSULE PO SCH ×2 (09:31→21:13)
[2017-03-13] MEDS: FERROUS SULFATE 325 MG TABLET.DR PO SCH (09:31)
[2017-03-13] MEDS: FENOFIBRATE NANOCRYSTALLIZED 48 MG TABLET (TRICOR) PO SCH (09:31)
[2017-03-13] MEDS: ASPIRIN 81 MG TABLET(ECOTRIN) PO SCH (09:31)
[2017-03-13] MEDS: cefTRIAXone 1 GM in D5W 50 ML IV SCH (09:32)
[2017-03-13] MEDS: HEPARIN SODIUM,PORCINE 5000 UNITS/ML VIAL SUBCUT SCH ×2 (09:33→21:17)
--- NOTE | 2017-03-13 10:00 | NUR ---
PATIENT UP WITH PHYSICAL THERAPY, TOLERATED WELL, PT REQUESTED TO NOT SIT IN BEDSIDE, CHAIR AFTER WALK, PT STATES SHE IS TIRED AND JUST WANTS TO GO BACK TO SLEEP, PER PHYSICAL THERAPY THEY WILL ASSIST PT BACK IN BED AFTER PHYSICAL THERAPY, WILL FOLLOW UP
--- NOTE | 2017-03-13 12:14 | NUR ---
ROUNDS PT LAYING IN BED, EYES CLOSED, RESTING, EVEN RISE AND FALL OF CHEST NOTED, NO S/S OF ACUTE DISTRESS OR PAIN, VSS, IV FLUIDS INFUSING AT ORDERED RATE, NO S./S OF INFILTRATION NOTED, SAFETY MEASURES IN PLACE, CALL LIGHT WITHIN REACH, WILL CONTINUE TO MONITOR PT CLOSELY
[2017-03-13 12:20] VITALS: BP_SYST 134
--- NOTE | 2017-03-13 13:39 | NUR ---
DISCHARGE PLANNING [phone][facility] spoke with Suha in admitting patient accepted assigned to room 4B RN to report [phone] bed available anytime. Any ambulance can be arranged. Placed transportation packet in nurse station. DCP tomorrow.
--- NOTE | 2017-03-13 13:43 | NUR ---
PHYSICAL THERAPY CO-SIGN The Physical Therapy Progress Notes documented by [employer]izer have been reviewed. Reviewed/Co-Signed by: Radha Jones, PT Documentation Done by: Casimiro Schulz PTA I concur with the documentation of this IT TELECOM TECHNICIAN. Plan: continue PT as per plan of care if she remains in this hospital. Addendum: 03/13/17 at 1344 by Radha Jones PT Amended: Links added.
--- NOTE | 2017-03-13 14:00 | NUR ---
ROUNDS PT LAYING TO SIDE, RESTING, EVEN RISE AND FALL OF CHEST NOTED, PT GENTLE AWAKENED, NOTED LUNCH TRAY AT BEDSIDE UNTOUCHED, PT STATED SHE WOULD HAVE THE APPLE SAUCES ON TRAY, PT ASSIST TO SITTING UP POSITION, TRAY POSITIONED AND PT LEFT HAVING LUNCH, CALL LIGHT WITHIN REACH, WILL FOLLOW UP
[2017-03-13 16:04] VITALS: BP_SYST 130
--- NOTE | 2017-03-13 16:15 | NUR ---
ROUNDS PT SITTING UP IN BED, RESTING, EYES CLOSED, EVEN RISE AND FALL OF CHEST NOTED, PATIENT GENTLY AWAKENED, QUESTIONED IF SHE HAD ANY NEEDS AT THIS TIME, IF I CAN REPOSITION HER TO HER SIDE TO ALLEVIATE PRESSURE OF SACRUM PT REFUSED BEING REPOSITIONED, ACCEPTED TO HAVE THE HEAD OF BED LOWERED AND STATED TO COME BACK AT A LATER TIME TO HELP HER TO THE RESTROOM, CALL LIGHT PLACED WITHIN REACH SO SHE CAN CALL FOR ASSISTANCE, SAFETY MEASURES IN PLACE, WILL FOLLOW UP
--- NOTE | 2017-03-13 18:03 | NUR ---
EPISODE OF NAUSEA AND VOMITING FAMILY AT BEDSIDE, PATIENT STATED THAT FOOD WAS NOT APPEALING, FAMILY ENCOURAGED PATIENT TO AT LEAST EAT THE MASHED POTATOES, FAMILY SPOON FEED PATIENT, PATIENT BEGAN TO VOMIT WHEN FINISHED WITH MASHED POTATOES PORTION OF TRAY, PT SAT UP, GIVEN ZOFRAN AND CLEANED, PT STATED SHE DIDN'T WANT IT AND IT MADE HER NAUSEAS, WILL ENDORSE TO NEXT SHIFT, TO NOTIFY MD, PT STABLE, NOT VOMITING AT THE MOMENT, SAFETY MEASURES IN PLACE, CALL LIGHT WITHIN REACH, WILL FOLLOW UP
--- NOTE | 2017-03-13 18:34 | NUR ---
CLOSING NOTE PATIENT SITTING UP IN BED, ALERT AND ORIENTED, NO S/S OF ACUTE DISTRESS OR PAIN, DENIES ANY NAUSEA AT THIS TIME, IV FLUIDS INFUSING AT ORDERED RATE, NO S/S OF INFILTRATION AT THIS TIME, ALL NEEDS ATTENDED TO THROUGHOUT SHIFT SAFETY MEASURES IN PLACE, CALL LIGHT WITHIN REACH, WILL GIVE REPORT TO FOLLOWING SHIFT
[2017-03-13] MEDS: DONEPEZIL HCL 5 MG TABLET (ARICEPT) PO SCH (21:13)
[2017-03-14] VITALS (7 sets, daily range): BP systolic 133–145
[2017-03-14] MEDS: NORMAL SALINE 5 ML DISP.SYRIN IVF SCH ×2 (05:59→14:15)
--- NOTE | 2017-03-14 06:03 | NUR ---
follow up on consult called and exchange said that they we need to call the office when it opens to verify that the consult was put in since it was called into the office. rn aware Addendum: 03/14/17 at 0604 by Anuradha Hines CNA for doctor hubbard
--- NOTE | 2017-03-14 06:36 | NUR ---
CLOSING NOTES: PT is able to response to the name. PT resting well,no s/sx of distress and pain.position comfortable to the right side,elevated the head.all need are met,report to day shift nurse and call light within reach,continue monitor.
[2017-03-14 07:00] LABS: BASOPHILS % (AUTO) 0.7 % (0.0-2.0); EOSINOPHILS # (AUTO) 0.3 K/uL (0.0-0.4); EOSINOPHILS % (AUTO) 4.9 % (0.0-4.0); LYMPHOCYTES # (AUTO) 0.7 K/uL (1.0-5.5); LYMPHOCYTES % (AUTO) 12.1 % (20.5-51.5); MEAN CORPUSCULAR HEMOGLOBIN 23 pg (27-31); MEAN CORPUSCULAR HGB CONC 31 % (32-36); MEAN CORPUSCULAR VOLUME 75 fL (79.0-98.0); MONOCYTES # (AUTO) 0.7 K/uL (0.0-1.0); MONOCYTES % (AUTO) 11.5 % (1.7-9.3); NEUTROPHILS # (AUTO) 4.2 K/uL (1.8-7.7); NEUTROPHILS % (AUTO) 70.8 % (40.0-70.0); PLATELET COUNT (AUTO) 337 K/uL (130-430); RED BLOOD CELL COUNT(AUTO) 2.93 MIL/uL (4.2-6.2); RED CELL DISTRIBUTION WIDTH 18.5 % (9.0-15.0); WHITE BLOOD COUNT (AUTO) 5.9 K/uL (4.8-10.8)
[2017-03-14 07:22] LABS: ANION GAP 7 (5-15); CALCIUM 8.4 mg/dL (8.4-11.0); CHLORIDE 105 mmol/L (98-107); CREATININE 1.12 mg/dL (0.55-1.30); GLUCOSE 104 mg/dL (70-99); POTASSIUM 4.2 mmol/L (3.5-5.1); SODIUM SERUM 136 mmol/L (136-145); UREA NITROGEN, BLOOD 14 mg/dL (8-21)
[2017-03-14 07:24] LABS: HEMOGLOBIN 6.8 g/dL (12.0-16.0)
--- NOTE | 2017-03-14 07:30 | NUR ---
DR JENSEN CALLED AND NOTIFIED OF CRITICAL LAB RESULT, NEW ORDER RECEIVED FOR [facility] TRANSFUSE NOW, ORDER PLACED, SON CALLED FOR TELEPHONE CONSENT, MESSAGE LEFT, AWAITING CALL BACK
--- NOTE | 2017-03-14 08:08 | NUR ---
INITIAL NOTE PT RESTING, EASY TO AROUSE, ALERT AND ORIENTED X4, NO S/S OF ACUTE DISTRESS OR PAIN, PT DENIES ANY FEELING OF WEAKNESS OR SOB, IV FLUIDS INFUSING AT ORDERED RATE, NO S/S OF INFILTRATION NOTED, SCDS IN PLACE, PT ASSISTED TO BED GARCIA, DARK RED URINE NOTED, DR BRANCH MAKING ROUNDS AND MADE AWARE OF BLOODY URINE AND H/H , MD ORDERED UA, WILL CARRY OUT, PLAN OF CARE DISCUSSED WITH PATIENT, PT VERBALIZED UNDERSTANDING, SAFETY MEASURES IN PLACE, CALL LIGHT WITHIN REACH, WILL CONTINUE TO MONITOR PT CLOSELY
[2017-03-14] MEDS: FENOFIBRATE NANOCRYSTALLIZED 48 MG TABLET (TRICOR) PO SCH (08:50)
[2017-03-14] MEDS: LACTOBACILLUS RHAMNOSUS GG 1 CAP CAPSULE PO SCH (08:50)
[2017-03-14] MEDS: ASPIRIN 81 MG TABLET(ECOTRIN) PO SCH (08:50)
[2017-03-14] MEDS: PANTOPRAZOLE SODIUM 40 MG TAB PO SCH (08:50)
[2017-03-14] MEDS: FERROUS SULFATE 325 MG TABLET.DR PO SCH (08:50)
[2017-03-14] MEDS: cefTRIAXone 1 GM in D5W 50 ML IV SCH (08:51)
[2017-03-14] MEDS: HEPARIN SODIUM,PORCINE 5000 UNITS/ML VIAL SUBCUT SCH (08:52)
[2017-03-14 09:06] LABS: BILIRUBIN,URINE 1+ (NEGATIVE); BLOOD, URINE 3+ (NEGATIVE); CLARITY/URINE HAZY (CLEAR); COLOR,URINE RED (YELLOW); GLUCOSE,URINE NEGATIVE (NEGATIVE); KETONES,URINE NEGATIVE (NEGATIVE); LEUKOCYTE ESTERASE ,URINE TRACE (NEGATIVE); NITRITE, URINE POSITIVE (NEGATIVE); PROTEIN URINE 3+ (NEGATIVE); UROBILINOGEN,URINE 0.2 (0.2-1.0)
[2017-03-14 09:19] LABS: BACTERIA,URINE FEW /HPF (None Seen); RBC,URINE >100 /HPF (0-3); WBC,URINE 0-3 /HPF (0-3)
[2017-03-14 09:20] LABS: MUCUS,URINE None Seen /LPF (None Seen)
--- NOTE | 2017-03-14 09:40 | NUR ---
DISCHARGE PLANNING Patient accepted [facility] bed assignment will be given upon discharge order RN to report [phone]. Patient also accepted at [facility] assigned to room 4B RN to report [phone], bed available anytime. Pending patient choice of accepting facility. Any ambulance can be arranged. Placed transportation packet in nurse station. Pending discharged order. Addendum: 03/14/17 at 1006 by Emely Rodriguez DP spoke with Lu in admitting at [facility] patient assigned to room 100B, bed available anytime.
--- NOTE | 2017-03-14 09:45 | NUR ---
DR JENSEN MAKING ROUNDS, MADE AWARE OF PT HEMATURIA, STATED TO HANG UNIT OF BLOOD SOON POSSIBLE AND CONTINUE WITH DISCHARGE TO [facility], PATIENT AND FAMILY MADE AWARE
--- NOTE | 2017-03-14 10:00 | NUR ---
ROUNDS PT LAYING IN BED, RESTING, EVEN RISE AND FALL OF CHEST NOTED, NO S/S OF ACUTE DISTRESS OR COMPLAINT OF PAIN, VSS, IV FLUIDS INFUSING, AWAITING [facility] TO START TRANSFUSION
--- NOTE | 2017-03-14 11:11 | NUR ---
PT NOTES CHART REVIEWED AND CLEARED FOR PT BY RN. ENTERED ROOM AROUND 0850 TO ATTEMPT THERAPY, PATIENT IN SEMIFOWLER POSITION RESTING, DECLINES PARTICIPATION IN THERAPY EXPRESSING GENERAL MALAISE, RN AT BEDSIDE AND WILL RETURN AT LATER TIME. RETURNED TO PATIENTS TO PATIENTS ROOM AGAIN AROUND 1025 TO ATTEMPT THERAPY AGAIN, BUT CONTINUES TO DECLINE PARTICIPATION IN THERAPY D/T CONTINUED MALAISE AND "TIRED" PER PATIENT. EDUCATED AND ENCOURAGED FURTHER PARTICIPATION IN HEP, VERBALIZED UNDERSTANDING AND DEMONSTRATED FEW LE EXERCISES. PATIENT COOPERATIVE AND APPRECIATIVE OF PT CARE, RN MADE AWARE. TRAY AND CALL LIGHT IN REACH. PVEx2 Addendum: 03/14/17 at 1356 by Radha Jones PT PHYSICAL THERAPY CO-SIGN The Physical Therapy Progress Notes documented by Home Health Care Coordinator have been reviewed. Reviewed/Co-Signed by: Radha Jones, PT Documentation Done by: Casimiro Schulz PTA
--- NOTE | 2017-03-14 11:33 | NUR ---
Discharge Planning: [place] [facility] ([phone] report number); transportation has been placed on will call with [facility] ([phone]). Packet has been placed a nurses station.
--- NOTE | 2017-03-14 12:30 | NUR ---
BT INITIATION: Consent signed per SON ALEX agreeing to administration of blood. Blood has been type and crossmatched. Blood sent from blood bank. Information on unit of blood checked against patient wristband at bedside by two nurses. All information matches. Patient or responsible green party informed of potential complications associated with blood transfusion. Informed of possible transfusion reaction symptoms. Aware of need to notify nurse at once of itching, shortness of breath, flushing, feeling of impending doom, or other symptoms not previously present. Vital signs taken within 5 minutes prior to initiation of transfusion. RN will remain with patient for first 15 minutes of transfusion at which time vital signs will be re-assessed.
--- NOTE | 2017-03-14 12:45 | NUR ---
15 MINUTES POST TRANSFUSION INITIATION VSS TEMPERATURE 98, HR 82, RR 18, BP 132/65 PT DENIES ANY PAIN, SOB, ITCHING, SAFETY MEASURES IN PLACE, CALL LIGHT WITHIN REACH, WILL CONTINUE TO MONITOR PT CLOSELY
--- NOTE | 2017-03-14 14:45 | NUR ---
ROUNDS PT LAYING IN BED, SON AT BEDSIDE, NO S/S OF ACUTE DISTRESS OR PAIN, VSS, BLOOD TRANSFUSION STILL INFUSING IV SITE PATENT AND INTACT, SAFETY MEASURES IN PLACE, CALL LIGHT WITHIN REACH, WILL CONTINUE TO MONITOR PT CLOSELY
--- NOTE | 2017-03-14 15:35 | NUR ---
BLOOD TRANSFUSION COMPLETE PT TOLERATED WELL, NO S/S OF BLOOD TRANSFUSION REACTION, VSS, IV SITE FLUSHED, STILL PATENT, NO S/S OF INFILTRATION NOTED, WILL CONTINUE TO MONITOR
--- NOTE | 2017-03-14 16:32 | NUR ---
AMBULANCE ARRANGEMENT MADE CALLED [facility] SPOKE WITH KYE AND ARRANGED FOR A [address] [employer]OCKER TO TRANSFER PATIENT TO [facility] .
--- NOTE | 2017-03-14 17:54 | NUR ---
REPORT GIVEN TO CHRIS AT [facility], GIVE STAUFFER CANDELARIA CALL BACK NUMBER IF ANY FURTHER QUESTIONS
--- NOTE | 2017-03-14 18:45 | NUR ---
CLOSING NOTE AMBULANCE CALLED, STATED THEY WOULD BE AN HOUR LATE, PATIENT AND FAMILY MADE AWARE, PT COMPLAINS OF PAIN WILL MEDICATE PER SLIDING SCALE. NO S/S OF ACUTE DISTRESS, ALL NEEDS ATTENDED TO THROUGHOUT SHIFT, SAFETY MEASURES MAINTAINED, CALL LIGHT WITHIN REACH, WILL GIVE REPORT TO FOLLOWING SHIFT
[2017-03-14] MEDS: MORPHINE 2 MG/ML INJ. SYRINGE IVP PRN (19:09)
--- NOTE | 2017-03-14 19:15 | NUR ---
BEDSIDE REPORT DONE AT BEDSIDE. PATIENT AWAKE ,ORIENTED X3,RESTING WELL ,ON RIGHT SIDE POSITION.
--- NOTE | 2017-03-14 20:20 | NUR ---
[facility] AMBULANCE STAFF HERE. VITAL SIGNS TAKEN. SON ALEX HERE AT BEDSIDE.CHECKED FOR DIAPER DRYNESS. ITS DRY AND COMFORTABLE.
--- NOTE | 2017-03-14 20:30 | NUR ---
CHECKED CHART WITH MR.TORRES Rosdao AMBULANCE EMT ABOUT [employer]VANCED DIRECTIVE FOR CODE STATUS.,SEEN MADE COPIES FOR THEIR FILE.
--- NOTE | 2017-03-14 20:35 | NUR ---
REPORT GIVEN TO MR.DOMINICK CARTAGENA ,[facility] AMBULANCE EMT ,ALL NECESSARY PAPERS INSIDE PACKET GIVEN. PATIENT TO GO TO [facility] RM 4B.
--- NOTE | 2017-03-14 20:40 | NUR ---
DISCHARGED PATIENT FROM [facility] TO [facility]IA [facility] AMBULANCE WITH SALINE LOCK IN PLACE AND PATENT PER REPORT ACCOMPANIED BY SON. AND AMBULANCE STAFF. ALL D/C PERTINENT PAPERS IN SIDE PACKET GIVEN TO EMT MR. CARTAGENA.PATIENT IS AWAKE ORIENTED X3. DRY AND COMFORTABLE.
== END 2017-03-14 20:45 | DRG 56 ==
LOC: SED 21:53 → SMU 03-08 01:24
PROVIDERS: ADMIT General Practice; ATTEND General Practice
PROC: 0DB98ZX Excision of Duodenum, Via Natural or Artificial Opening Endoscopic, Diagnostic (ICD-10-PCS; 2017-03-11)
PROC: 0DB68ZX Excision of Stomach, Via Natural or Artificial Opening Endoscopic, Diagnostic (ICD-10-PCS; principal; 2017-03-11 07:30)
PROC: 30233N1 Transfusion of Nonautologous Red Blood Cells into Peripheral Vein, Percutaneous Approach (ICD-10-PCS; 2017-03-14)
DX: G30.9 Alzheimer's disease, unspecified (principal); G93.41 Metabolic encephalopathy; E43 Unspecified severe protein-calorie malnutrition; N17.9 Acute kidney failure, unspecified; N39.0 Urinary tract infection, site not specified; C80.1 Malignant (primary) neoplasm, unspecified; F02.80 Dementia in other diseases classified elsewhere, unspecified severity, without behavioral disturbance, psychotic disturbance, mood disturbance, and anxiety; D63.0 Anemia in neoplastic disease; N28.89 Other specified disorders of kidney and ureter; Z66 Do not resuscitate; D63.8 Anemia in other chronic diseases classified elsewhere; D50.9 Iron deficiency anemia, unspecified; E83.39 Other disorders of phosphorus metabolism; K80.20 Calculus of gallbladder without cholecystitis without obstruction; R62.7 Adult failure to thrive; M62.81 Muscle weakness (generalized); E87.6 Hypokalemia; K56.41 Fecal impaction; K57.90 Diverticulosis of intestine, part unspecified, without perforation or abscess without bleeding; E78.5 Hyperlipidemia, unspecified; K29.60 Other gastritis without bleeding; K21.0 Gastro-esophageal reflux disease with esophagitis; K44.9 Diaphragmatic hernia without obstruction or gangrene; Z79.82 Long term (current) use of aspirin; Z79.899 Other long term (current) drug therapy; Z86.73 Personal history of transient ischemic attack (TIA), and cerebral infarction without residual deficits; Z68.25 Body mass index [BMI] 25.0-25.9, adult; Z95.0 Presence of cardiac pacemaker
CPT/HCPCS: 36415; 43239; 71010; 80048; 80053; 80061; 81000-TC; 82150-TC; 82607; 82728; 82746; 83036; 83540-TC; 83550-TC; 83690-TC; 83735-TC; 83880; 84100-TC; 84436; 84439; 84443-TC; 84479; 84484; 85025; 85610-TC; 85730-TC; 86886; 86900; 86901; 86920; 87081; 87086; 88305; 88312; 88313; 92610-GN; 93306; 96361; 96374; 96375; 97110-GP; 97116-GP; 97530-GP; 99285; C9113; J0696; J1644; J2175; J2250; J2270; J2405; J2543; J3475; J3480; J7030; J7040; J7060; P9021; Q9967